=== PATIENT | male | born 1970 | race Caucasian/White ===

== ENCOUNTER → 2024-10-14 06:19 | Day surgery (SDC) | payer OTHER, SELFPAY | LOC: GI 06:19 | PROVIDERS: ATTENDING PHYSICIAN Internal Medicine Gastroenterology | DX: Z12.11 Encounter for screening for malignant neoplasm of colon (principal); K64.8 Other hemorrhoids; R07.89 Other chest pain; R10.13 Epigastric pain; K22.89 Other specified disease of esophagus; K29.50 Unspecified chronic gastritis without bleeding; K20.0 Eosinophilic esophagitis | CPT/HCPCS: 43239; G0121; 88305; 88342 ==

== ENCOUNTER → 2024-12-30 14:16 | Outpatient (REF) | payer OTHER, SELFPAY | LOC: HWRAD 14:16 | PROVIDERS: ATTENDING PHYSICIAN Internal Medicine Gastroenterology; FAMILY PHYSICIAN Family Medicine | DX: R10.13 Epigastric pain (principal) | CPT/HCPCS: 76700 ==